=== PATIENT | female | born 2000 | race Caucasian/White ===

== ENCOUNTER 2024-02-19 23:09 | Emergency (ER) | payer MEDICAID ==
[~2024-02-19] VITALS: Ht 157.5 cm; Wt 82.0 kg
[2024-02-19 23:45] VITALS: BP 127/88; PULSE 83; RESP 16; TEMP 98.1; O2SAT 97
[2024-02-20 00:05] LABS: BASOPHILS % 0.4 % (0.0-2.0); EOSINOPHILS % 0.9 % (0.0-5.0); HEMATOCRIT. 42.3 % (36.0-48.0); HEMOGLOBIN. 14.8 g/dL (12.0-16.0); LYMPHOCYTES % 29.8 % (20.0-50.0); MEAN CORPUSCULAR HEMOGLOBIN 31.1 pg (28.0-32.0); MEAN CORPUSCULAR VOLUME 89.1 fL (81.0-99.0); MEAN PLATELET VOLUME 6.6 fl (7.4-10.4); MONOCYTES % 6.7 % (2.0-8.0); NEUTROPHILS % 62.2 % (40.0-76.0); PLATELET 324 x1000/uL (130-400); RED BLOOD CELL COUNT 4.75 mill/uL (4.2-5.4); RED CELL DISTRIBUTION WIDTH 12.5 % (11.6-14.6); WHITE BLOOD COUNT 9.2 x1000/uL (4.5-11.0)
[2024-02-20 00:13] LABS: CHLORIDE 106 mEq/L (98-107); POTASSIUM 4.2 mEq/L (3.5-5.1); SODIUM 139 mEq/L (136-145)
[2024-02-20 00:14] LABS: CALCIUM 9.8 mg/dL (8.7-10.4); CARBON DIOXIDE 26 mEq/L (21-32)
[2024-02-20] MEDS ORDERED: ACETAMINOPHEN 325MG TABLET PO ONE (00:15)
[2024-02-20 00:19] LABS: CREATININE 0.9 mg/dL (0.6-1.0); GLUCOSE 93 mg/dL (70-105); UREA NITROGEN BLOOD 12 mg/dL (9-23)
[2024-02-20 00:21] LABS: ALANINE AMINOTRANSFERASE 14 IU/L (10-49); ALBUMIN 4.9 g/dL (3.2-4.8); ASPARTATE AMINOTRANSFERASE 19 IU/L (<34); BILIRUBIN DIRECT 0.2 mg/dL (<=3.0); BILIRUBIN TOTAL 0.8 mg/dL (0.1-1.0); PROTEIN TOTAL 7.8 g/dL (6.0-8.3)
[2024-02-20 00:51] LABS: HCG SCREEN NEGATIVE
== END 2024-02-20 01:47 | disposition left against medical advice (07) ==
LOC: ER 23:33
DX: R10.31 Right lower quadrant pain (principal); R10.33 Periumbilical pain; R11.0 Nausea; F41.9 Anxiety disorder, unspecified; G43.909 Migraine, unspecified, not intractable, without status migrainosus
CPT/HCPCS: 36415; 80048; 80076; 84703; 85025; 86850; 86900; 99283